=== PATIENT | male | born 1990 | race Caucasian/White ===

== ENCOUNTER 2016-09-23 10:52 | Emergency (ER) | payer BC ==
[~2016-09-23] VITALS: Ht 193 cm; Wt 74.0 kg
[~2016-09-23 10:52] MED LIST: CYCL-36 PO; IBUP-238 PO; IBUP800 PO; IMOD2TAB PO; ZOFR4TAB3 SL
[2016-09-23 11:05] VITALS: BP_SYST 132; BP_SYST 141; BP_DIAS 74; BP_DIAS 78; PULSE 84; PULSE 91; RESP 15; RESP 18; TEMP 99.9; O2SAT 97; O2SAT 99
--- NOTE | 2016-09-23 11:12 | PD ---
HPI Chief Complaint: Cold / Flu Symptoms Time Seen by Provider: 11:12 Travel History International Travel<30 days: No Contact w/Intl Traveler<30days: No Traveled to known affect area: No History of Present Illness HPI 26-year-old male presents to the emergency department for evaluation of sore throat, subjective fever, body aches since yesterday. Had one episode of vomiting. No hematemesis. No diarrhea. States that he has finals coming up and he cannot be sick. He has not tried taking any ibuprofen or Tylenol for his symptoms. He is not followed up with primary care provider. Concerned that something "may really be wrong." Denies any chest pain or tightness. No cough or chest congestion. Denies any other symptoms at this time. PFSH Past Medical History ADD: Yes Gastrointestinal Disorders: Yes (IBS) Tetanus Vaccination: Unknown Influenza Vaccination: No Past Surgical History Surgical History: No Previous Surgery Social History Alcohol Use: Yes (OCC) Tobacco Use: Yes (cigar occ) Substance Use: No Allergies-Medications (Allergen,Severity, Reaction): Coded Allergies: No Known Allergies (Unverified , 09/23/16) Reported Meds & Prescriptions Reported Meds & Active Scripts Active Zofran ODT (Ondansetron HCl) 4 Mg Tab 4 Mg SL Q6H PRN FOR NAUSEA/VOMITING Review of Systems Except as stated in HPI: all other systems reviewed are Neg Physical Exam Narrative GENERAL: Well-nourished male patient, in no acute distress SKIN: Focused skin assessment warm/dry. HEAD: Atraumatic. Normocephalic. EYES: Pupils equal and round. No scleral icterus. No injection or drainage. ENT: No nasal bleeding or discharge. Mucous membranes pink and moist. Sterile pharynx with erythema without exudates. NECK: Trachea midline. No JVD. CARDIOVASCULAR: Regular rate and rhythm. No murmur appreciated. RESPIRATORY: No accessory muscle use. Clear to auscultation. Breath sounds equal bilaterally. GASTROINTESTINAL: Abdomen soft, non-tender, nondistended. Hepatic and splenic margins not palpable. MUSCULOSKELETAL: No obvious deformities. No clubbing. No cyanosis. No edema. NEUROLOGICAL: Awake and alert. No obvious cranial nerve deficits. Motor grossly within normal limits. Normal speech. PSYCHIATRIC: Appropriate mood and affect; insight and judgment normal. Data Data Last Documented VS Vital Signs Date Time Temp Pulse Resp B/P Pulse Ox O2 Delivery O2 Flow Rate FiO2 09/23/16 11:44 99.6 09/23/16 11:07 Room Air 09/23/16 11:05 91 18 141/78 97 Orders Iv Access Insert/Monitor (09/23/16 11:15) Group A Rapid Strep Screen (09/23/16 11:15) Urinalysis - C+S If Indicated (09/23/16 11:15) Sodium Chlor 0.9% 1000 Ml Inj (Ns 1000 M (09/23/16 11:15) Complete Blood Count With Diff (09/23/16 11:15) Basic Metabolic Panel (Bmp) (09/23/16 11:15) Influenzae A/B Antigen (09/23/16 11:15) Ketorolac Inj (Toradol Inj) (09/23/16 11:15) Ondansetron Inj (Zofran Inj) (09/23/16 11:15) Strep Culture (Group A) (09/23/16 11:35) Diphenhydramine Inj (Benadryl Inj) (09/23/16 13:15) Labs Laboratory Tests Test 09/23/16 11:35 White Blood Count 7.6 TH/MM3 Red Blood Count 5.08 MIL/MM3 Hemoglobin 15.4 GM/DL Hematocrit 43.8 % Mean Corpuscular Volume 86.2 FL Mean Corpuscular Hemoglobin 30.3 PG Mean Corpuscular Hemoglobin 35.2 % Concent Red Cell Distribution Width 12.8 % Platelet Count 175 TH/MM3 Mean Platelet Volume 7.6 FL Neutrophils (%) (Auto) 80.6 % Lymphocytes (%) (Auto) 5.1 % Monocytes (%) (Auto) 12.7 % Eosinophils (%) (Auto) 1.3 % Basophils (%) (Auto) 0.3 % Neutrophils # (Auto) 6.1 TH/MM3 Lymphocytes # (Auto) 0.4 TH/MM3 Monocytes # (Auto) 1.0 TH/MM3 Eosinophils # (Auto) 0.1 TH/MM3 Basophils # (Auto) 0.0 TH/MM3 CBC Comment DIFF FINAL Differential Comment Urine Color YELLOW Urine Turbidity CLEAR Urine pH 8.5 Urine Specific [place] 1.024 Urine Protein 30 mg/dL Urine Glucose (UA) NEG mg/dL Urine Ketones NEG mg/dL Urine Occult Blood NEG Urine Nitrite NEG Urine Bilirubin NEG Urine Urobilinogen LESS THAN 2.0 MG/DL Urine Leukocyte Esterase NEG Urine RBC LESS THAN 1 /hpf Urine WBC LESS THAN 1 /hpf Urine Squamous Epithelial <1 /hpf Cells Urine Mucus FEW /lpf Microscopic Urinalysis Comment CULT NOT INDICATED Sodium Level 138 MEQ/L Potassium Level 4.1 MEQ/L Chloride Level 102 MEQ/L Carbon Dioxide Level 30.0 MEQ/L Anion Gap 6 MEQ/L Blood Urea Nitrogen 10 MG/DL Creatinine 1.09 MG/DL Estimat Glomerular Filtration 83 ML/MIN Rate Random Glucose 92 MG/DL Calcium Level 8.8 MG/DL [facility] Medical Decision Making Medical Screen Exam Complete: Yes Emergency Medical Condition: Yes Medical Record Reviewed: Yes Differential Diagnosis Viral pharyngitis versus strep pharyngitis versus viral syndrome versus influenza versus electrolyte abnormality Narrative Course 26-year-old male presents to the emergency department for evaluation. Patient appears without distress. His vital signs are stable. He does have a low- grade temperature. CBC and BMP are without acute concern. Urinalysis is a 30 proteinuria, few mucus, cultures not indicated. Patient is given IV normal saline fluid. Influenza and strep green are negative. Is likely a viral syndrome. Patient will be discharged home to follow-up with primary care provider. He agrees to return immediately with any acute worsening of symptoms. Prior to discharge, the patient reports his left eye itching and feels that it is swelling up. He he is given IV Benadryl and observed. Symptoms do not worsen in fact improved. He'll be discharged at this time. Diagnosis Primary Impression: Viral syndrome Additional Impression: Pharyngitis Qualified Code: J02.9 - Pharyngitis, unspecified etiology Referrals: Primary Care Physician Patient Instructions: General Instructions, Pharyngitis (ED), Viral Syndrome ( ED) Additional Instructions: Tylenol and/or ibuprofen as directed on package as needed for fever and/or pain Follow-up with a primary care provider Avoid abrasive and acidic foods Warm salt water gargles may help to alleviate your sore throat pain Maintain adequate oral hydration Return immediately with any acute worsening of symptoms Med/Other Pt SpecificInfo: No Change to Meds Disposition: 01 DISCHARGE HOME Condition: Stable Izzy Plasencia Sep 23, 2016 11:12
[2016-09-23] MEDS ORDERED: SODIUM CHLOR 0.9% 1000 ML INJ 1,000 ML IV ONE (11:15)
[2016-09-23] MEDS ORDERED: ONDANSETRON HCL 4 MG/2 ML VIAL IV PUSH ONE (11:15)
[2016-09-23] MEDS ORDERED: KETOROLAC TROMETHAMINE 30 MG/ML (IVP) VIAL IV PUSH ONE (11:15)
[2016-09-23 11:44] VITALS: TEMP 99.6
[2016-09-23 11:58] LABS: AUTOMATED NEUTROPHIL # 6.1 TH/MM3 (1.8-7.7); BASOPHIL % 0.3 % (0.0-2.0); EOSINOPHIL # 0.1 TH/MM3 (0-0.4); EOSINOPHIL % 1.3 % (0.0-4.0); HEMATOCRIT 43.8 % (39.0-51.0); HEMO FLAGS DIFF FINAL; LYMPH % 5.1 % (9.0-44.0); LYMPHOCYTE # 0.4 TH/MM3 (1.0-4.8); MEAN CELL VOLUME 86.2 FL (80.0-100.0); MEAN CORPUSCULAR HEMOGLOBIN 30.3 PG (27.0-34.0); MEAN CORPUSCULAR HGB CONC 35.2 % (32.0-36.0); MONO % 12.7 % (0.0-8.0); NEUT % 80.6 % (16.0-70.0); PLATELET COUNT 175 TH/MM3 (150-450); RED BLOOD COUNT 5.08 MIL/MM3 (4.50-5.90); RED CELL DISTRIBUTION WIDTH 12.8 % (11.6-17.2); WHITE BLOOD COUNT 7.6 TH/MM3 (4.0-11.0)
[2016-09-23 12:01] LABS: BLOOD, URINE NEG (NEG); COMMENT (UR) CULT NOT INDICATED; CULTURE IF INDICATED CULT NOT INDICATED; GLUCOSE,URINE NEG (NEG); KETONE, URINE NEG (NEG); MUCUS URINE FEW /lpf (OCC); NITRITE,URINE NEG (NEG); PH, URINE 8.5 (5.0-8.5); SQUAMOUS EPITHELIAL CELL URINE <1 /hpf (0-5); URINE COLOR YELLOW (YELLW/STRAW)
[2016-09-23 12:32] LABS: POTASSIUM 4.1 MEQ/L (3.5-5.1)
[2016-09-23] MEDS ORDERED: diphenhydrAMINE HCL 50 MG/ML VIAL IV PUSH ONE (13:15)
== END 2016-09-23 14:05 | disposition home or self-care (01) ==
LOC: NEPD 10:52
DX: J02.9 Acute pharyngitis, unspecified (principal); B34.9 Viral infection, unspecified; K58.9 Irritable bowel syndrome, unspecified
CPT/HCPCS: 80048; 81001; 85025; 87081; 87804; 87880; 96361; 96374; 96375; 99283; J1200; J1885; J2405; J7030

== ENCOUNTER 2017-03-11 12:07 | Emergency (ER) | payer BC ==
[~2017-03-11] VITALS: Ht 193 cm; Wt 79.0 kg
[~2017-03-11 12:07] MED LIST changes: -CYCL-36 PO; -IBUP-238 PO; -IBUP800 PO; -IMOD2TAB PO
[2017-03-11 12:08] VITALS: BP 136/70; PULSE 72; RESP 19; TEMP 98; O2SAT 98
--- NOTE | 2017-03-11 12:16 | PD ---
Physical Exam Time Seen by Provider: 12:13 Narrative 26-year-old male presents emergency Department with complaint of midsternal chest wall pain 2 weeks after slam his chest into a [place]. Onset of shortness of breath within the past couple days. Describes it as a sharp stabbing pain. Denies heart palpations. Denies hemoptysis. Patient seen in triage. Vital signs reviewed. Patient awaiting medical bed. Data Data Last Documented VS Vital Signs Date Time Temp Pulse Resp B/P (MAP) Pulse Ox O2 Delivery O2 Flow Rate FiO2 03/11/17 12:08 98.0 72 19 136/70 (92) 98 Room Air MDM Supervised Visit with JARED: Viviane Ramos Mar 11, 2017 12:16
--- NOTE | 2017-03-11 12:59 | RADRPT ---
EXAM DATE/TIME: 03/11/2017 12:43 [facility] COMPARISON: No previous studies available for comparison. INDICATIONS : Pain and shortness of breath post fall. MEDICAL HISTORY : None. SURGICAL HISTORY : None. ENCOUNTER: Initial ACUITY: 2 weeks PAIN SCORE: 8/10 LOCATION: Bilateral chest FINDINGS: PA and lateral views of the chest demonstrate the lungs to be symmetrically aerated without evidence of mass, infiltrate or effusion. The cardiomediastinal contours are unremarkable. Osseous structure s are intact. CONCLUSION: No acute disease. Nacho Edwards Jr., MD on March 11, 2017 at 12:56 Board Certified Radiologist. This report was verified electronically.
[2017-03-11 13:51] VITALS: BP 131/80; PULSE 65; RESP 19; TEMP 97.6; O2SAT 100
--- NOTE | 2017-03-11 14:12 | PD ---
HPI Chief Complaint: Chest Pain Time Seen by Provider: 13:47 Travel History International Travel<30 days: No Contact w/Intl Traveler<30days: No Traveled to known affect area: No History of Present Illness HPI 26-year-old male presents to the emergency room for evaluation of chest wall tenderness for the past 2 weeks that seemed to worsen over the past 2 days. Patient reports the only injury he can think of is when he was rock climbing ekes ago, he swung 20 feet striking his back against the rock. He had no direct trauma to the chest. Patient states pain is worsened with deep breathing. He denies any history of lung or cardiac disease. Denies any recent illness or cough. He has not taken anything for pain. Pain is worsened when he pushes on the left third anterior rib. Denies chronic medical conditions or daily medications. [facility] Past Medical History ADD: Yes Gastrointestinal Disorders: Yes (IBS) Tetanus Vaccination: Unknown Influenza Vaccination: No Past Surgical History Surgical History: No Previous Surgery Social History Alcohol Use: Yes (OCC) Tobacco Use: Yes (cigar occ) Substance Use: No Allergies-Medications (Allergen,Severity, Reaction): Coded Allergies: No Known Allergies (Unverified , 03/11/17) Reported Meds & Prescriptions Reported Meds & Active Scripts Active No Active Prescriptions or Reported Medications Review of Systems Except as stated in HPI: all other systems reviewed are Neg Physical Exam Narrative GENERAL: Well-nourished, well-developed male in no acute distress. Afebrile. Ambulatory. SKIN: Focused skin assessment warm/dry. Heme or ecchymosis. HEAD: Normocephalic. EYES: No scleral icterus. No injection or drainage. NECK: Supple, trachea midline. No JVD or lymphadenopathy. CARDIOVASCULAR: Regular rate and rhythm without murmurs, gallops, or rubs. RESPIRATORY: Breath sounds equal bilaterally. No accessory muscle use. No crackles, rales, wheezes, or rhonchi. CHEST: Moderate tenderness to palpation of the left third rib at the sternochondral joint. No deformity or crepitance. No retractions or use of accessory muscles. Data Data Last Documented VS Vital Signs Date Time Temp Pulse Resp B/P (MAP) Pulse Ox O2 Delivery O2 Flow Rate FiO2 03/11/17 13:51 65 19 100 Room Air 03/11/17 13:51 97.6 131/80 (97) Orders Orders Chest, Pa & Lat (03/11/17 12:16) Electrocardiogram (03/11/17 14:05) Basic Metabolic Panel (Bmp) (03/11/17 14:05) Complete Blood Count With Diff (03/11/17 14:05) D-Dimer (03/11/17 14:05) Troponin I (03/11/17 14:05) Iv Access Insert/Monitor (03/11/17 14:05) Sodium Chloride 0.9% Flush (Ns Flush) (03/11/17 14:15) Ketorolac Inj (Toradol Inj) (03/11/17 14:15) Ketorolac Inj (Toradol Inj) (03/11/17 14:30) Labs Laboratory Tests Test 03/11/17 14:30 White Blood Count 5.4 TH/MM3 Red Blood Count 5.04 MIL/MM3 Hemoglobin 15.0 GM/DL Hematocrit 44.0 % Mean Corpuscular Volume 87.2 FL Mean Corpuscular Hemoglobin 29.8 PG Mean Corpuscular Hemoglobin Concent 34.2 % Red Cell Distribution Width 12.4 % Platelet Count 227 TH/MM3 Mean Platelet Volume 8.1 FL Neutrophils (%) (Auto) 55.2 % Lymphocytes (%) (Auto) 30.8 % Monocytes (%) (Auto) 9.2 % Eosinophils (%) (Auto) 4.3 % Basophils (%) (Auto) 0.5 % Neutrophils # (Auto) 3.0 TH/MM3 Lymphocytes # (Auto) 1.7 TH/MM3 Monocytes # (Auto) 0.5 TH/MM3 Eosinophils # (Auto) 0.2 TH/MM3 Basophils # (Auto) 0.0 TH/MM3 CBC Comment DIFF FINAL Differential Comment D-Dimer Quantitative (PE/DVT) LESS THAN 0.19 MG/L FEU Blood Urea Nitrogen 18 MG/DL Creatinine 1.07 MG/DL Random Glucose 85 MG/DL Calcium Level 8.6 MG/DL Sodium Level 137 MEQ/L Potassium Level 4.3 MEQ/L Chloride Level 103 MEQ/L Carbon Dioxide Level 30.1 MEQ/L Anion Gap 4 MEQ/L Estimat Glomerular Filtration Rate 85 ML/MIN Troponin I LESS THAN 0.02 NG/ML MDM Medical Decision Making Medical Screen Exam Complete: Yes Emergency Medical Condition: Yes Medical Record Reviewed: Yes Differential Diagnosis Costochondritis, upper respiratory infection, cough, pneumonia, PE unlikely Narrative Course 26-year-old male presents to the emergency room for evaluation of chest wall pain for the past 2 weeks that has gotten progressively worse. Patient developed pain with breathing 2 days ago. Patient is well-appearing and in no acute distress. Ambulated from the triage to the exam room without difficulty. Vital signs stable. 100% on room air. EKG shows sinus bradycardia, rate of 57 with sinus arrhythmia. No ST changes. No concern for acute infarction, signed off by my attending physician. IV access established and basic labs obtained. CBC and BMP unremarkable. Troponin less than 0.02. D-dimer negative. Given the patient has point tenderness to palpation of the sternochondral joint on the left third rib, this is likely costochondritis. I have very little suspicion for CAD or lung etiology. Patient was given Toradol in the emergency room. Told to follow up with her primary care physician if symptoms persist or return for worsening symptoms. He understands and agrees to plan. Diagnosis Primary Impression: Acute costochondritis Referrals: Primary Care Physician Additional Instructions: Rest and drink plenty of fluids. Take ibuprofen with food as directed, as needed for pain. Apply ice to the affected area for 20 minutes at a time, as needed for pain and swelling. Follow-up with a primary care physician. Return to the emergency room for worsening symptoms. Med/Other Pt SpecificInfo: Prescription(s) given Scripts No Active Prescriptions or Reported Meds Disposition: 01 DISCHARGE HOME Condition: Stable Debra Pollack Mar 11, 2017 14:12
[2017-03-11] MEDS ORDERED: KETOROLAC TROMETHAMINE 60 MG/2 ML (IM) VIAL IM ONE (14:15)
[2017-03-11] MEDS ORDERED: SODIUM CHLORIDE 0.9% FLUSH 10 ML FLUSH IVF PRN (14:15)
[2017-03-11] MEDS ORDERED: KETOROLAC TROMETHAMINE 30 MG/ML (IVP) VIAL IV PUSH ONE (14:30)
[2017-03-11 14:53] LABS: BASOPHIL % 0.5 % (0.0-2.0); EOSINOPHIL # 0.2 TH/MM3 (0-0.4); EOSINOPHIL % 4.3 % (0.0-4.0); HEMO FLAGS DIFF FINAL; LYMPH % 30.8 % (9.0-44.0); LYMPHOCYTE # 1.7 TH/MM3 (1.0-4.8); MEAN CELL VOLUME 87.2 FL (80.0-100.0); MEAN CORPUSCULAR HEMOGLOBIN 29.8 PG (27.0-34.0); MEAN CORPUSCULAR HGB CONC 34.2 % (32.0-36.0); MONO % 9.2 % (0.0-8.0); NEUT % 55.2 % (16.0-70.0); PLATELET COUNT 227 TH/MM3 (150-450); RED BLOOD COUNT 5.04 MIL/MM3 (4.50-5.90); RED CELL DISTRIBUTION WIDTH 12.4 % (11.6-17.2); WHITE BLOOD COUNT 5.4 TH/MM3 (4.0-11.0)
[2017-03-11 15:11] LABS: ANION GAP 4 MEQ/L (5-15); BICARBONATE 30.1 MEQ/L (21.0-32.0); BLOOD UREA NITROGEN 18 MG/DL (7-18); CHLORIDE 103 MEQ/L (98-107); GLOMERULAR FILTRATION RATE 85 ML/MIN (>89); POTASSIUM 4.3 MEQ/L (3.5-5.1); SODIUM (NA) 137 MEQ/L (136-145)
[2017-03-11 16:02] VITALS: BP 117/60
--- NOTE | 2017-03-11 18:46 | EKG ---
Date Performed: 03/11/2017 Time Performed: 14:34:27 PTAGE: 26 years EKG: SINUS BRADYCARDIA WITH SINUS ARRHYTHMIA BORDERLINE RIGHT AXIS DEVIATION BORDERLINE ECG NO PREVIOUS TRACING DOCTOR: Javier Mendez Interpretating Date/Time 03/11/2017 18:44:52
== END 2017-03-11 16:03 | disposition home or self-care (01) ==
LOC: NEPD 12:07
DX: M94.0 Chondrocostal junction syndrome [Tietze] (principal); R06.02 Shortness of breath; K58.9 Irritable bowel syndrome, unspecified; F17.200 Nicotine dependence, unspecified, uncomplicated
CPT/HCPCS: 71020; 80048; 84484; 85025; 85379; 93005; 96374; 99285; J1885